=== PATIENT | male | born 1975 | race Caucasian/White ===

== ENCOUNTER 2020-10-31 09:23 | Day surgery (SDC) | payer OTHER ==
[2020-10-31] MEDS ORDERED: ceFAZolin 1GM/50ML 50 ML IV ONE (13:01)
[2020-10-31] MEDS ORDERED: LIDOCAINE W/ EPINEPHRINE 1% 20ML VIAL ONE (13:39)
[2020-10-31] MEDS ORDERED: NEOMYCIN-BACITRACIN-POLYM 15GM TOP OINT TOP ONE (13:40)
[2020-10-31] MEDS ORDERED: ONDANSETRON HCL 4 MG/2 ML VIAL IV PRN ×2 (14:00→15:00)
[2020-10-31] MEDS ORDERED: HYDROmorphone HCL 2 MG/ML VL IV PRN ×2 (14:00→15:00)
[2020-10-31] MEDS ORDERED: MORPHINE SULFATE 4 MG/ML SYR/VIAL IV PRN ×2 (14:00→15:00)
[2020-10-31] MEDS ORDERED: hydrALAZINE HCL 20 MG/ML VL IV PRN (14:00)
[2020-10-31] MEDS ORDERED: MIDAZOLAM HCL 2MG/2ML 2ml VIAL (1mg/ml) IV PRN ×2 (14:00→15:00)
[2020-10-31] MEDS ORDERED: LABETALOL HCL 5 MG/ML 4ML SYRINGE IV PRN ×2 (14:00→15:00)
[2020-10-31] MEDS ORDERED: fentaNYL CITRATE 100 MCG/2 ML VL ONE (14:01)
[2020-10-31] MEDS ORDERED: MIDAZOLAM HCL 2MG/2ML 2ml VIAL (1mg/ml) ONE (14:01)
[2020-10-31] MEDS ORDERED: PROPOFOL 10 MG/ML 20 ML IV ONE (14:04)
[2020-10-31] MEDS ORDERED: DexAMETHasone SOD PHOS 10MG/1ML VIAL INJ ONE (14:04)
[2020-10-31] MEDS ORDERED: ePHEDrine SULFATE 50 MG/ML AMP IV PRN (15:00)
[2020-10-31 15:15] VITALS: BP 140/89
== END 2020-10-31 15:30 | disposition home or self-care (01) ==
LOC: SUR 09:23
PROVIDERS: ATTEND Urology
DX: N46.8 Other male infertility (principal); I10 Essential (primary) hypertension; J45.909 Unspecified asthma, uncomplicated; F32.9 Major depressive disorder, single episode, unspecified; Z88.8 Allergy status to other drugs, medicaments and biological substances; Z98.890 Other specified postprocedural states; Z79.899 Other long term (current) drug therapy
CPT/HCPCS: 55250; J0690; J1100; J2250; J2704; J3010; J7030; 88302